=== PATIENT | male | born 1970 | race African-American/Black ===

== ENCOUNTER 2020-10-03 13:20 | Inpatient (IN) | payer OTHER ==
[~2020-10-03] VITALS: Ht 182.9 cm; Wt 77.1 kg
[2020-10-03 13:51] LABS: HEMOGLOBIN 11.1 gm/dl (14.0-17.5); RED BLOOD COUNT 3.92 M/UL (4.20-5.50); WHITE BLOOD COUNT 5.2 K/UL (4.5-11.0)
[2020-10-03 14:12] LABS: BUN/CREATININE RATIO 48 (0-10)
[2020-10-03] MEDS ORDERED: JANUVIA50 MG PO (18:08)
[2020-10-03] MEDS ORDERED: SEROQUEL200 MG PO (18:09)
[2020-10-03] MEDS ORDERED: KLONOPIN TAB 00.5 MG PO (18:10)
[2020-10-03] MEDS ORDERED: GLUCOPHAGE1000 MG PO (18:11)
[2020-10-03] MEDS ORDERED: RISPERDAL3 MG PO (18:13)
[2020-10-03] MEDS ORDERED: "DEPAKOTE \\\"ER\\\"500 MG" PO (18:14)
[2020-10-03] MEDS ORDERED: SEROQUEL300 MG PO (18:14)
[2020-10-03] MEDS ORDERED: TYLENOL325 M1 PO (18:15)
[2020-10-03] MEDS ORDERED: ZESTRIL5 MG PO (18:15)
[2020-10-04 05:44] LABS: HEMOGLOBIN 9.9 gm/dl (14.0-17.5)
[2020-10-04 05:47] LABS: RED BLOOD COUNT 3.45 M/UL (4.20-5.50); WHITE BLOOD COUNT 3.8 K/UL (4.5-11.0)
[2020-10-04 06:10] LABS: BUN/CREATININE RATIO 31 (0-10)
[2020-10-05 05:26] LABS: HEMOGLOBIN 9.9 gm/dl (14.0-17.5); RED BLOOD COUNT 3.48 M/UL (4.20-5.50)
[2020-10-05 05:29] LABS: WHITE BLOOD COUNT 5.6 K/UL (4.5-11.0)
[2020-10-05 05:56] LABS: BUN/CREATININE RATIO 23 (0-10)
[2020-10-06 04:56] LABS: HEMOGLOBIN 9.5 gm/dl (14.0-17.5); RED BLOOD COUNT 3.27 M/UL (4.20-5.50); WHITE BLOOD COUNT 4.4 K/UL (4.5-11.0)
[2020-10-06 05:18] LABS: BUN/CREATININE RATIO 24 (0-10)
[2020-10-07 04:47] LABS: HEMOGLOBIN 9.2 gm/dl (14.0-17.5); RED BLOOD COUNT 3.25 M/UL (4.20-5.50)
[2020-10-07 04:51] LABS: WHITE BLOOD COUNT 5.8 K/UL (4.5-11.0)
[2020-10-07 05:18] LABS: BUN/CREATININE RATIO 16 (0-10)
[2020-10-08 04:48] LABS: HEMOGLOBIN 9.4 gm/dl (14.0-17.5); RED BLOOD COUNT 3.36 M/UL (4.20-5.50); WHITE BLOOD COUNT 4.9 K/UL (4.5-11.0)
[2020-10-08 05:04] LABS: BUN/CREATININE RATIO 17 (0-10)
[2020-10-09 16:21] LABS: BUN/CREATININE RATIO 18 (0-10)
[2020-10-10 02:36] LABS: HEMOGLOBIN 9.8 gm/dl (14.0-17.5); RED BLOOD COUNT 3.48 M/UL (4.20-5.50)
[2020-10-10 02:42] LABS: WHITE BLOOD COUNT 6.2 K/UL (4.5-11.0)
[2020-10-10 02:55] LABS: BUN/CREATININE RATIO 21 (0-10)
[2020-10-11 02:28] LABS: RED BLOOD COUNT 3.55 M/UL (4.20-5.50); WHITE BLOOD COUNT 7.1 K/UL (4.5-11.0)
[2020-10-11 02:51] LABS: BUN/CREATININE RATIO 27 (0-10)
--- NOTE | 2020-10-12 15:07 | NUR ---
PT HAS BEEN NON-VERBAL THROUGHUT THE MORNING. MD WAS ABLE TO GET HIM TO ANSWER ONE QUESTION, BUT PT HAS NOT MADE EYE CONTACT. PT IS NOT RESPONDING TO VERBAL CUES AND IS NOT SQUEEZING HANDS UPON ASSESSING NEURO STATUS. SPEECH THERAPIST STATES THE PT HAS DECLINED SINCE THE LAST EVALUATION. WILL CONTINUE TO MONITOR.
[2020-10-13 07:50] LABS: HEMOGLOBIN 9.7 gm/dl (14.0-17.5); RED BLOOD COUNT 3.58 M/UL (4.20-5.50); WHITE BLOOD COUNT 8.2 K/UL (4.5-11.0)
[2020-10-13 08:32] LABS: BUN/CREATININE RATIO 28 (0-10)
[2020-10-15 05:19] LABS: HEMOGLOBIN 10.6 gm/dl (14.0-17.5); RED BLOOD COUNT 3.75 M/UL (4.20-5.50); WHITE BLOOD COUNT 8.4 K/UL (4.5-11.0)
[2020-10-15 05:40] LABS: BUN/CREATININE RATIO 23 (0-10)
[2020-10-18 04:51] LABS: HEMOGLOBIN 9.6 gm/dl (14.0-17.5); RED BLOOD COUNT 3.45 M/UL (4.20-5.50)
[2020-10-18 05:09] LABS: BUN/CREATININE RATIO 28 (0-10)
[2020-10-20 06:42] LABS: HEMOGLOBIN 9.8 gm/dl (14.0-17.5); RED BLOOD COUNT 3.58 M/UL (4.20-5.50); WHITE BLOOD COUNT 7.1 K/UL (4.5-11.0)
[2020-10-20 06:59] LABS: BUN/CREATININE RATIO 27 (0-10)
--- NOTE | 2020-10-25 11:54 | NUR ---
1150: STAFF MEMBER FROM [facility] ARRIVES FOR VISIT, SPOKE WITH PATIENT AND LEFT.
[2020-10-26 02:54] LABS: HEMOGLOBIN 9.9 gm/dl (14.0-17.5); RED BLOOD COUNT 3.63 M/UL (4.20-5.50); WHITE BLOOD COUNT 7.2 K/UL (4.5-11.0)
[2020-10-26 04:07] LABS: BUN/CREATININE RATIO 27 (0-10)
[2020-10-26] MEDS ORDERED: POLYETHYLENE GL17 GM PO (11:19)
[2020-10-26] MEDS ORDERED: BISACODYL10 MG PR (11:19)
[2020-10-26] MEDS ORDERED: QUETIAPINE FUM100 MG PO (11:19)
[2020-10-26] MEDS ORDERED: STIMULANT LAXA1 EACH PO (11:19)
[2020-10-26] MEDS ORDERED: IPRAT-ALBUT 0.5-3 ML NEB (11:19)
[2020-10-26] MEDS ORDERED: BROVANA15 MCG/2 M NEB (11:19)
[2020-10-26] MEDS ORDERED: BUDESONIDE0.5 MG/2 M NEB (11:19)
[2020-10-26] MEDS ORDERED: BENZTROPINE MESY1 MG PO (11:19)
== END 2020-10-26 16:28 | disposition home or self-care (01) | DRG 871 ==
LOC: ER1 13:20 → CDU 10-04 04:31 → MED SURG 4 10-04 04:31 → PROG CARE 10-04 04:31 → CCU 10-04 04:31 → PROG CARE 10-08 03:08 → MED SURG 4 10-11 18:03
PROVIDERS: Emergency Medicine; Family Medicine; Internal Medicine; Internal Medicine Infectious Disease; ADMIT Internal Medicine
PROC: 02H633Z Insertion of Infusion Device into Right Atrium, Percutaneous Approach (ICD-10-PCS; principal; 2020-10-04)
PROC: B548ZZA Ultrasonography of Superior Vena Cava, Guidance (ICD-10-PCS; 2020-10-04)
DX: A41.9 Sepsis, unspecified organism (principal); R65.21 Severe sepsis with septic shock; J69.0 Pneumonitis due to inhalation of food and vomit; J96.01 Acute respiratory failure with hypoxia; G92 Toxic encephalopathy; J98.11 Atelectasis; N17.9 Acute kidney failure, unspecified; E87.2 Acidosis; G25.9 Extrapyramidal and movement disorder, unspecified; T68.XXXA Hypothermia, initial encounter; D69.6 Thrombocytopenia, unspecified; K59.00 Constipation, unspecified; Z87.820 Personal history of traumatic brain injury; F06.31 Mood disorder due to known physiological condition with depressive features; Z20.822 Contact with and (suspected) exposure to COVID-19; F31.9 Bipolar disorder, unspecified; F25.9 Schizoaffective disorder, unspecified; G40.909 Epilepsy, unspecified, not intractable, without status epilepticus; R00.1 Bradycardia, unspecified; F70 Mild intellectual disabilities; Z79.899 Other long term (current) drug therapy; Z79.84 Long term (current) use of oral hypoglycemic drugs; E03.9 Hypothyroidism, unspecified; E11.649 Type 2 diabetes mellitus with hypoglycemia without coma
CPT/HCPCS: 0240U; 36415; 36600; 70450; 71045; 74230; 80048; 80053; 80202; 80307; 81001; 82140; 82533; 82550; 82553; 82803; 82962; 83605; 83735; 84100; 84132; 84439; 84443; 85025; 86140; 87040; 87081; 87086; 92526; 92610; 92611-GN; 93005; 94640; 94664; 94760; 95816; 96365; 96366; 96367; 97110; 97110-GP-CQ; 97116; 97116-GP-CQ; 97163; 97167; 97530; 97530-GP-CQ; 97535; 99285; A6212; C1751; G0480; J0692; J0696; J1650; J2543; J3370; J7030; J7070; U0002

== ENCOUNTER → 2021-01-19 | Outpatient (CLI) | payer OTHER ==
[~2021-01-19] MED LIST: "DEPAKOTE \\\"ER\\\"500 MG" PO; BENZTROPINE MESY1 MG PO; BISACODYL10 MG PR; BROVANA15 MCG/2 M NEB; BUDESONIDE0.5 MG/2 M NEB; GLUCOPHAGE1000 MG PO; IPRAT-ALBUT 0.5-3 ML NEB; JANUVIA50 MG PO; KLONOPIN TAB 00.5 MG PO; POLYETHYLENE GL17 GM PO; QUETIAPINE FUM100 MG PO; RISPERDAL3 MG PO; SEROQUEL200 MG PO; SEROQUEL300 MG PO; STIMULANT LAXA1 EACH PO; TYLENOL325 M1 PO; ZESTRIL5 MG PO
== END ==
LOC: US 14:15
DX: E11.9 Type 2 diabetes mellitus without complications (principal); R60.9 Edema, unspecified; J44.9 Chronic obstructive pulmonary disease, unspecified; I10 Essential (primary) hypertension; D69.6 Thrombocytopenia, unspecified; D64.9 Anemia, unspecified
CPT/HCPCS: 93922; 93925

== ENCOUNTER → 2021-08-04 | Outpatient (CLI) | payer OTHER ==
[2021-08-04 11:13] LABS: HEMOGLOBIN 11.7 gm/dl (14.0-17.5); RED BLOOD COUNT 4.35 M/UL (4.20-5.50); WHITE BLOOD COUNT 5.3 K/UL (4.5-11.0)
[2021-08-04 11:39] LABS: BUN/CREATININE RATIO 19 (0-10)
[2021-08-05 10:13] LABS: CREATININE, URINE 113.4 mg/dL (Not Estab.); MICROALB/CREAT RATIO <3 (0-29)
== END ==
LOC: LAB 09:51
PROVIDERS: Nurse Practitioner Primary Care
DX: K76.0 Fatty (change of) liver, not elsewhere classified (principal); E11.9 Type 2 diabetes mellitus without complications; I10 Essential (primary) hypertension; G40.909 Epilepsy, unspecified, not intractable, without status epilepticus; H40.9 Unspecified glaucoma; D69.6 Thrombocytopenia, unspecified
CPT/HCPCS: 36415; 80053; 80061; 82043; 82570; 83036; 84443; 85025

== ENCOUNTER → 2022-04-26 | Outpatient (CLI) | payer OTHER | LOC: RAD 14:22 | DX: Z03.818 Encounter for observation for suspected exposure to other biological agents ruled out (principal) | CPT/HCPCS: 71046 ==